=== PATIENT | female | born 1995 | race Hispanic/Latino ===

== ENCOUNTER 2022-01-07 01:10 | Emergency (ER) | payer MEDICAID ==
[~2022-01-07] VITALS: Ht 152.4 cm; Wt 79.8 kg
[2022-01-07 01:16] VITALS: BP 119/82
== END 2022-01-07 03:33 | disposition home or self-care (01) ==
LOC: EDH 01:10
DX: J10.1 Influenza due to other identified influenza virus with other respiratory manifestations (principal); Z20.822 Contact with and (suspected) exposure to COVID-19
CPT/HCPCS: 71045; 87635; 87804 ×2; 87880; 99284; C9803